=== PATIENT | male | born 1960 | race African-American/Black ===

== ENCOUNTER 2017-02-14 16:29 | Inpatient (IN) | payer OTHER, MEDICAID ==
[~2017-02-14] VITALS: Ht 182.9 cm; Wt 124.3 kg
--- NOTE | 2017-02-14 16:29 | NUR ---
Patient BIBA ACLS accompanied by [id number], transferred to bed 6. RN evaluating patient at bedside.
[2017-02-14 16:37] VITALS: BP 122/74
--- NOTE | 2017-02-14 16:48 | NUR ---
APT BIBA FOR EVALUATION OF NON RADIATING CHEST PAIN X2 HOURS.DENIES N/V; HX OF CHF, HTN, HYPERLIPIDEMIA, DIAPHRAGMATIC HERNIA WITHOUT REPAIR.SKIN IS PINK/WARM/DRY; AAOX4 WITH EVEN AND STEADY GAIT; LUNGS CLEAR BL; HR EVEN AND REGULAR; PT DENIES ANY FEVER OR COUGH AT THIS TIME; PATIENT STATES PAIN OF 4/10 AT THIS TIME;PATIENT POSITIONED FOR COMFORT; HOB ELEVATED; BEDRAILS UP X2; BED DOWN. ALL MONITORS IN PLACED;ER MD MADE AWARE OF PT STATUS.
--- NOTE | 2017-02-14 17:02 | NUR ---
LAUNDRY EQUIPMENT OPERATOR AT BEDSIDE
[2017-02-14 17:12] LABS: BASOPHILS # (AUTO) 0.1 K/uL (0.00-0.22); BASOPHILS % (AUTO) 1.5 % (0.0-2.0); EOSINOPHILS # (AUTO) 0.2 K/uL (0-0.4); EOSINOPHILS % (AUTO) 4.4 % (0.0-4.0); HEMATOCRIT 43.1 % (36-52); HEMOGLOBIN 14.1 g/dL (12.0-18.0); LYMPHOCYTES # (AUTO) 1.3 K/uL (2.0-11.5); LYMPHOCYTES % (AUTO) 24.4 % (20.5-51.1); MEAN CORPUSCULAR HEMOGLOBIN 30 pg (27-31); MEAN CORPUSCULAR HGB CONC 33 g/dL (33-37); MEAN CORPUSCULAR VOLUME 91 fL (80-94); MONOCYTES # (AUTO) 0.6 K/uL (0.8-1.0); MONOCYTES % (AUTO) 10.5 % (1.7-9.3); NEUTROPHILS # (AUTO) 3.2 K/uL (1.8-7.7); NEUTROPHILS % (AUTO) 59.2 % (42.2-75.2); PLATELET COUNT (AUTO) 192 K/uL (140-450); RED BLOOD CELL COUNT(AUTO) 4.76 MIL/uL (4.20-6.10); RED CELL DISTRIBUTION WIDTH 13.4 % (11.6-13.7); WHITE BLOOD COUNT (AUTO) 5.4 K/uL (4.8-10.8)
--- NOTE | 2017-02-14 17:24 | NUR ---
PT RESTING ON BED;NO ACUTE DISTRESS NOTED;WILL CONTINUE TO MONITOR PT.
[2017-02-14 17:28] LABS: ANION GAP 11.5 (8-16); CARBON DIOXIDE 25.6 mmol/L (21-32); CREATININE 1.3 mg/dL (0.7-1.3); POTASSIUM 4.1 mmol/L (3.5-5.1)
[2017-02-14 17:34] LABS: ALBUMIN 3.2 g/dL (3.4-5.0); TOTAL BILIRUBIN 0.4 mg/dL (0.0-1.0)
[2017-02-14 17:44] LABS: PROTHROMBIN TIME 11.2 secs (10.8-13.4)
--- NOTE | 2017-02-14 18:00 | NUR ---
Dr. Rodríguez evaluating patient at bedside.
--- NOTE | 2017-02-14 18:01 | NUR ---
daisha hwang at bedside.
--- NOTE | 2017-02-14 18:25 | NUR ---
CALLED TELE TO GIVE REPORT THEY WILL CALL BACK BECAUSE CHARGE NURSE IS GIVING THE NURSES THEIR ASSIGNMENT.
[2017-02-14] MEDS ORDERED: TRAM50TA1 PO (18:50)
--- NOTE | 2017-02-14 18:51 | NUR ---
CALLED 2X TO GIVE REPORT;THEY SAID THEY ARE BUSY AT THIS TIME THEY WILL CALL BACK LATER.
[2017-02-14] MEDS ORDERED: LISI10TA11 PO (18:52)
[2017-02-14] MEDS ORDERED: DULO30EC PO (18:53)
[2017-02-14] MEDS ORDERED: MELA3TAB PO (18:54)
[2017-02-14] MEDS ORDERED: GABA100C PO (18:56)
[2017-02-14] MEDS ORDERED: METO100T14 PO (18:57)
[2017-02-14] MEDS ORDERED: GABA300C PO (18:59)
--- NOTE | 2017-02-14 19:01 | NUR ---
Patient will be admitted to care of DR BECK. Admited to TELE. Will go to room 120 B. Belongings list completed. Report to GURWINDER HENDRIX.
[2017-02-14 19:30] VITALS: BP 133/82
--- NOTE | 2017-02-14 19:30 | NUR ---
PATIENT ADMITTED TO THE UNIT FROM THE ER. PATIENT IS ALERT, AWAKE, ORIENTED AND AMBULATORY. PATIENT'S IS PRESENT. NO SIGNS AND SYMPTOMS OF DISTRESS NOTED. NO COMPLAINTS OF PAIN AT THIS TIME. SKIN IS INTACT. IV SITE NOTED ON RIGHT AC. BED IN LOWEST POSITION, SIDE RAILS UP AND CALL LIGHT WITHIN REACH. WILL CONTINUE TO MONITOR.
[2017-02-14] MEDS ORDERED: ASPIRIN 81 MG TAB.CHEW PO SCH (21:45)
[2017-02-14] MEDS ORDERED: ONDANSETRON 4 MG/2 ML VIAL IVP PRN (21:45)
[2017-02-14] MEDS ORDERED: traMADol 50 MG TAB PO PRN (21:45)
[2017-02-14] MEDS ORDERED: ALUMINUM HYD/MAG/SIMETHICONE 30 ML UDC PO PRN (21:45)
[2017-02-14] MEDS ORDERED: LORazepam 1 MG TAB PO PRN (21:45)
[2017-02-14] MEDS ORDERED: ZOLPIDEM 5 MG TAB PO PRN (21:45)
[2017-02-14] MEDS ORDERED: IBUPROFEN 400 MG TAB PO PRN (22:10)
--- NOTE | 2017-02-14 22:30 | NUR ---
CHECKED ON PATIENT. PATIENT IS IN BED WATCHING TV. NO SIGNS AND SYMPTOMS OF DISTRESS NOTED. NO COMPLAINTS OF PAIN AT THIS TIME. WILL CONTINUE TO MONITOR.
[2017-02-15] VITALS (7 sets, daily range): BP systolic 120–138; BP diastolic 77–85
--- NOTE | 2017-02-15 | NUR ---
VTE SCORE 5, SCD NOT APPLIED. PATIENT AMBULATORY.
[2017-02-15 01:35] LABS: CREATINE KINASE MB 1.2 ng/mL (0-3.6)
--- NOTE | 2017-02-15 03:30 | NUR ---
CHECKED ON PATIENT. PATIENT IS ASLEEP. NO SIGNS AND SYMPTOMS OF DISTRESS NOTED. WILL CONTINUE TO MONITOR.
[2017-02-15 06:42] LABS: BASOPHILS # (AUTO) 0.1 K/uL (0.00-0.22); BASOPHILS % (AUTO) 1.6 % (0.0-2.0); EOSINOPHILS # (AUTO) 0.3 K/uL (0-0.4); EOSINOPHILS % (AUTO) 4.1 % (0.0-4.0); HEMATOCRIT 41.2 % (36-52); HEMOGLOBIN 13.8 g/dL (12.0-18.0); LYMPHOCYTES # (AUTO) 1.3 K/uL (2.0-11.5); LYMPHOCYTES % (AUTO) 20.6 % (20.5-51.1); MEAN CORPUSCULAR HEMOGLOBIN 30 pg (27-31); MEAN CORPUSCULAR HGB CONC 34 g/dL (33-37); MEAN CORPUSCULAR VOLUME 90 fL (80-94); MONOCYTES # (AUTO) 0.6 K/uL (0.8-1.0); MONOCYTES % (AUTO) 9.4 % (1.7-9.3); NEUTROPHILS # (AUTO) 3.9 K/uL (1.8-7.7); NEUTROPHILS % (AUTO) 64.3 % (42.2-75.2); PLATELET COUNT (AUTO) 166 K/uL (140-450); RED BLOOD CELL COUNT(AUTO) 4.57 MIL/uL (4.20-6.10); RED CELL DISTRIBUTION WIDTH 13.4 % (11.6-13.7); WHITE BLOOD COUNT (AUTO) 6.2 K/uL (4.8-10.8)
[2017-02-15 06:49] LABS: ANION GAP 12.1 (8-16); CARBON DIOXIDE 24.8 mmol/L (21-32); CREATININE 1.2 mg/dL (0.7-1.3); POTASSIUM 3.9 mmol/L (3.5-5.1)
[2017-02-15 06:58] LABS: MAGNESIUM 1.7 mg/dL (1.8-2.4); PHOSPHORUS 3.3 mg/dL (2.5-4.9)
--- NOTE | 2017-02-15 07:27 | NUR ---
PATIENT REPORT GIVEN AT BEDSIDE TO MORNING NURSE. PATIENT IS IN STABLE CONDITION.
--- NOTE | 2017-02-15 07:28 | NUR ---
RECEIVED REPORT FROM BAKERY PA[employer]Y INTERNSHIP NURSE AT BEDSIDE FOR CONTINUITY OF CARE. PT IS AWAKE AND ORIENTED. INTRODUCED SELF AND UPDATED BOARD. PT IS IN STABLE CONDITION. WILL CONTINUE TO MONITOR.
--- NOTE | 2017-02-15 08:46 | NUR ---
PATIENT HAS BEEN SCREENED AND CATEGORIZED MODERATE NUTRITION RISK. PATIENT WILL BE SEEN WITHIN 3-5 DAYS OF ADMISSION. 02/17/17-02/19/[address]
[2017-02-15] MEDS: DOCUSATE SODIUM 100 MG GELCAP PO SCH (09:00)
--- NOTE | 2017-02-15 09:00 | NUR ---
PT IN ROOM GETTING ECHO DONE.
[2017-02-15] MEDS: LISINOPRIL 10 MG TAB PO SCH (09:29)
[2017-02-15] MEDS: METOPROLOL SUCCINATE 50 MG TABER PO SCH ×2 (09:29→20:33)
--- NOTE | 2017-02-15 09:29 | NUR ---
ADMINISTERED SCHEDULED MEDS. TOLERATED WELL. PT REFUSED COLACE. PT STATED HE DOES NOT NEED IT AND USUALLY HAS A BM EVERYDAY. STATED HIS LAST BM WAS YESTERDAY AND HAD ONE THE DAY BEFORE. DENIES CHEST PAIN AND HAS NO OTHER COMPLAINTS AT THIS TIME.
[2017-02-15 09:44] LABS: CREATINE KINASE MB 1.2 ng/mL (0-3.6)
--- NOTE | 2017-02-15 11:45 | NUR ---
CHECKED ON PT IN ROOM. PT IS RESTING IN BED AND WATCHING TV. VS: BP 132/85 HR 60 RR 22 O2 SAT 95% TEMP 98.2 F. PT DENIES CHEST PAIN. WILL CONTINUE TO MONITOR.
--- NOTE | 2017-02-15 12:42 | NUR ---
PT IS SITTING UP IN BED EATING LUNCH RIGHT NOW. HAS NO COMPLAINTS AT THIS TIME. WILL UPDATE PT WITH ANY CHANGES. PT AWARE AND VERBALIZED UNDERSTANDING. WILL CONTINUE TO MONITOR.
--- NOTE | 2017-02-15 14:30 | NUR ---
CHECKED ON PT IN ROOM. PT IS RESTING COMFORTABLY IN BED. DENIES CHEST PAIN. NO COMPLAINTS AT THIS TIME WILL CONTINUE TO MONITOR.
[2017-02-15] MEDS: GABAPENTIN 100 MG CAP PO SCH ×2 (17:12→20:31)
--- NOTE | 2017-02-15 17:12 | NUR ---
ADMINISTERED SCHEDULED MED. PT TOLERATED WELL. PT ASKED ABOUT PLAN FOR TODAY. INFORMED PT THAT ENVIRONMENTAL SERVICES ASSOCIATE STILL NEEDS TO SEE HIM. PT VERBALIZED UNDERSTANDING. DENIES CHEST PAIN AND HAS NO OTHER COMPLAINTS AT THIS TIME. WILL CONTINUE TO MONITOR.
--- NOTE | 2017-02-15 19:15 | NUR ---
ENDORSED PT TO MANAGER MAINTENANCE NURSE AT BEDSIDE FOR CONTINUITY OF CARE. PT'S FAMILY MEMBER IS AT BEDSIDE. PT IN STABLE CONDITION.
--- NOTE | 2017-02-15 19:20 | NUR ---
RECEIVED PT IN STABLE CONDITION FROM AM NURSE. AWAKE,ALERT AND ORIENTED X4. ON TELE MONITOR -SR. DENIES ANY DISCOMFORT NOR PAIN NOTED. WITH HL ON THE RT. AC #22. CLEAR AND PATENT. AMBULATORY RO BATHROOM. PLAN OF CARE DISCUSSED AND VERBALIZED UNDERSTANDING. CALL LIGHT PLACED WITHIN EASY REACH. WILL CONTINUE TO MONITOR.
--- NOTE | 2017-02-15 20:33 | NUR ---
TOOK ALL NIGHT MEDICATIONS. NO C/ ANY DISCOMFORT NOR PAIN NOTED. WILL CONTINUE TO MONITOR.
[2017-02-15] MEDS ORDERED: GABAPENTIN 300 MG CAP PO SCH (21:00)
[2017-02-15] MEDS ORDERED: SIMVASTATIN 20 MG TAB PO SCH (21:00)
[2017-02-15] MEDS ORDERED: DULoxetine 30 MG CAPDR PO SCH (21:00)
[2017-02-15] MEDS ORDERED: NON-FORMULARY ITEM (Melatonin 3 MG) PO SCH (21:00)
--- NOTE | 2017-02-15 22:20 | NUR ---
MADE ROUNDS . PT IS ASLEEP. NO S/S OF ANY DISCOMFORT NOR PAIN NOTED.
--- NOTE | 2017-02-15 23:34 | NUR ---
PAGED DR. EBONY Dorman FOR MAGNESIUM LEVEL 1.7 ,WILL WAIT FOR CALL BACK.
--- NOTE | 2017-02-16 00:04 | NUR ---
Dandy WORRELL CALLED BACK. MADE AWARE OF THE MAGNESIUM LEVEL 1.7, WITH ORDERS .
[2017-02-16] MEDS ORDERED: MAG SULF 2000 MG/WATER PREMIX 50 ML IV SCH (00:05)
--- NOTE | 2017-02-16 03:00 | NUR ---
MADE ROUNDS . SLEEPING AT THIS TIME. NO S/S OF ANY DISCOMFORT NOR PAIN NOTED.
[2017-02-16 04:05] VITALS: BP 124/80
--- NOTE | 2017-02-16 06:00 | NUR ---
SLPET WELL DURING THE NIGHT. NO C/O DISCOMFORT NOR PAIN NOTED.
[2017-02-16 06:06] LABS: BASOPHILS # (AUTO) 0.1 K/uL (0.00-0.22); BASOPHILS % (AUTO) 1.6 % (0.0-2.0); EOSINOPHILS # (AUTO) 0.3 K/uL (0-0.4); HEMATOCRIT 43.9 % (36-52); HEMOGLOBIN 14.5 g/dL (12.0-18.0); LYMPHOCYTES # (AUTO) 1.4 K/uL (2.0-11.5); MEAN CORPUSCULAR HEMOGLOBIN 30 pg (27-31); MEAN CORPUSCULAR HGB CONC 33 g/dL (33-37); MEAN CORPUSCULAR VOLUME 91 fL (80-94); MONOCYTES # (AUTO) 0.7 K/uL (0.8-1.0); MONOCYTES % (AUTO) 9.6 % (1.7-9.3); NEUTROPHILS # (AUTO) 4.8 K/uL (1.8-7.7); NEUTROPHILS % (AUTO) 65.8 % (42.2-75.2); PLATELET COUNT (AUTO) 179 K/uL (140-450); RED BLOOD CELL COUNT(AUTO) 4.83 MIL/uL (4.20-6.10); WHITE BLOOD COUNT (AUTO) 7.3 K/uL (4.8-10.8)
[2017-02-16 06:34] LABS: ANION GAP 12.7 (8-16); CARBON DIOXIDE 24.6 mmol/L (21-32); CREATININE 1.2 mg/dL (0.7-1.3); POTASSIUM 4.3 mmol/L (3.5-5.1)
--- NOTE | 2017-02-16 07:15 | NUR ---
RECEIVED REPORT FROM PM NURSE FOR CONTINUITY OF CARE. PT AAO. RESP EVEN AND UNLABORED. INITIAL ASSESSMENT DONE. IV INTACT, NO SWELLING OR REDNESS NOTED. SKIN WARM AND DRY. NO S/S OF DISTRESS. PT DENIES PAIN OR DISCOMFORT. PLAN OF CARE DISCUSSED WITH PT, VERBALIZED UNDERSTANDING. SAFETY MEASURES IN PLACED. SIDE RAILS UP, BED LOCKED ON LOW POSITION, CALL LIGHT WITHIN REACH. WILL CONTINUE TO MONITOR.
--- NOTE | 2017-02-16 07:15 | NUR ---
ENDORSED PT IN STABLE CONDITION TO AM NURSE.
[2017-02-16 08:00] VITALS: BP 121/86
[2017-02-16] MEDS: DOCUSATE SODIUM 100 MG GELCAP PO SCH (09:00)
[2017-02-16] MEDS: LISINOPRIL 10 MG TAB PO SCH (09:26)
[2017-02-16] MEDS: METOPROLOL SUCCINATE 50 MG TABER PO SCH (09:26)
[2017-02-16] MEDS: GABAPENTIN 100 MG CAP PO SCH ×2 (09:26→13:23)
--- NOTE | 2017-02-16 10:00 | NUR ---
PT WATCHING TV. RESP EVEN AND UNLABORED. NO S/S OF DISTRESS, RESTLESSNESS, OR SOB. DENIES PAIN OR DISCOMFORT AT THIS TIME. SAFETY MEASURES IN PLACED. WILL CONTINUE TO MONITOR.
[2017-02-16 12:00] VITALS: BP 111/76
--- NOTE | 2017-02-16 12:04 | NUR ---
PT RESTING QUIETLY. RESP EVEN AND UNLABORED. NO S/S OF DISTRESS. SAFETY MEASURES IN PLACED. WILL CONTINUE TO MONITOR.
[2017-02-16] MEDS ORDERED: DOCU-299 PO (12:44)
[2017-02-16] MEDS ORDERED: SIMV20TA6 PO (12:44)
[2017-02-16] MEDS ORDERED: ZOLP5TAB1 PO (12:44)
--- NOTE | 2017-02-16 13:40 | NUR ---
DISCHARGE TEACHING AND INSTRUCTIONS GIVEN TO PT. PT VERBALIZED UNDERSTANDING. PT AAOX4. PT DENIES CHEST PAIN OR DISCOMFORT. NO S/S OF RESTLESSNESS, SOB, OR DISTRESS. DC'ED IV, CATH TIP INTACT. NO BLEEDING NOTED. PERSONAL BELONGINGS GIVEN TO PT. ARMBAND REMOVED. BUS PASS GIVEN TO PT. ESCORTED PT TO THE LOBBY. PT AMBULATED WITH STEADY GAIT.
== END 2017-02-16 13:40 | disposition home or self-care (01) | DRG 391 ==
LOC: MED 16:29 → MTU 18:46
PROVIDERS: ADMIT Preventive Medicine Preventive Medicine/Occupational Environmental Medicine; ATTEND Preventive Medicine Preventive Medicine/Occupational Environmental Medicine
DX: K21.9 Gastro-esophageal reflux disease without esophagitis (principal); I50.33 Acute on chronic diastolic (congestive) heart failure; R55 Syncope and collapse; R42 Dizziness and giddiness; I11.0 Hypertensive heart disease with heart failure; Z86.711 Personal history of pulmonary embolism; I25.10 Atherosclerotic heart disease of native coronary artery without angina pectoris; K44.9 Diaphragmatic hernia without obstruction or gangrene; R73.9 Hyperglycemia, unspecified; K40.90 Unilateral inguinal hernia, without obstruction or gangrene, not specified as recurrent; M48.02 Spinal stenosis, cervical region; E78.5 Hyperlipidemia, unspecified; Z88.6 Allergy status to analgesic agent; Z88.0 Allergy status to penicillin
CPT/HCPCS: 36415; 71010; 80048; 80053; 82550; 82553; 83735; 83880; 84100; 84484; 85025; 85379; 85610; 85730; 87081; 93005; 99285; J3475; J7030; Q0092